=== PATIENT | male | born 1995 | race Hispanic/Latino ===

== ENCOUNTER 2020-08-20 08:00 | Emergency (ER) | payer SELFPAY ==
[2020-08-20] MEDS ORDERED: Lorazepam 2 MG/ML VIAL ONE (08:18)
[2020-08-20] MEDS ORDERED: Aspirin Chewable 81 MG TAB ONE (08:19)
[2020-08-20] MEDS ORDERED: Acetaminophen 500 MG TAB ONE (08:24)
[2020-08-20 08:38] LABS: #Basophils 0.1 thou/uL (0.0-0.2); #Eosinphils 0.1 thou/uL (0.0-0.7); #Lymphocytes 1.7 thou/uL (1.20-3.40); #Monocytes 0.4 thou/uL (0.11-0.59); #Neutrophils 4.4 thou/uL (1.40-6.50); %Basophils 1.4 % (0.0-1.0); %Eosinophils 1.5 % (0.0-10.0); %Lymphocytes 25.2 % (21.0-51.0); %Monocytes 6.2 % (0.0-10.0); %Neutrophils 65.8 % (42.0-75.0); Hemoglobin 15.6 g/dL (14.0-18.0); Mean Corpuscular HGB CONC 32.8 g/dL (32.0-36.0); Mean Corpuscular Hemoglobin 27.6 pg (27.0-31.0); Mean Corpuscular Volume 84.2 fL (78.0-98.0); Platelet Count 269 thou/uL (130-400); RBC Distribution Width 11.4 % (11.5-14.5); Red Blood Cell (RBC) Count 5.65 mill/uL (4.70-6.10); White Blood Cell (WBC) Count 6.8 thou/uL (4.8-10.8)
--- NOTE | 2020-08-20 08:38 | RAD ---
EXAM: CHEST ONE VIEW HISTORY: Left-sided chest pain and shortness of breath which started this morning. COMPARISON: None FINDINGS: The cardiac silhouette and pulmonary vasculature are within normal limits. The lungs are clear. The o sseous structures are intact. IMPRESSION: No acute cardiopulmonary process.
[2020-08-20 08:53] LABS: Acetaminophen Less than 6.0 mcg/mL (10.0-30.0); Alcohol Less than 10 mg/dL (Less than 10); Salicylate Less than 8.0 mg/dL (15.0-30.0)
[2020-08-20 08:59] LABS: ALT (SGPT) 14 U/L (8-55); AST (SGOT) 20 U/L (5-34); Albumin 5.2 g/dL (3.5-5.0); Alkaline Phosphatase 103 U/L (40-110); Anion Gap 21 mmol/L (10-20); BUN (Urea Nitrogen) 15 mg/dL (8.9-20.6); Bilirubin, Total 0.8 mg/dL (0.2-1.2); Calc. Creatinine Clearance 0 mL/min (70-130); Calcium 10.4 mg/dL (7.8-10.44); Carbon Dioxide 19 mmol/L (22-29); Chloride 103 mmol/L (98-107); Estimated GFR-MDRD 65; Globulin 3.4 g/dL (2.4-3.5); Glucose 137 mg/dL (70-105); Potassium 4.1 mmol/L (3.5-5.1); Protein, Total 8.6 g/dL (6.0-8.3); Sodium 139 mmol/L (136-145)
--- NOTE | 2020-08-20 09:00 | CT ---
Exam: CT angiogram of the chest HISTORY: Chest pain. COMPARISON: None TECHNIQUE: CT angiogram of the chest is performed in the axial plane. Three-dimensional reformatted i mages are submitted for interpretation FINDINGS: Mediastinum: No mass, lymphadenopathy or hematoma. HEART: Normal size. No significant pericardial fluid. Aorta: No aneurysm or dissection Upper solid abdominal viscera: No abnormality enhancement. Trachea and central bronchi: Patent Pleural spaces: No effusion Lung parenchyma: No masses or consolidation. Pneumothorax: None Osseous structures: No lytic or blastic lesions Pulmonary arteries: Adequate contrast opacification pulmonary arterial system to the level of segment al arteries. No filling defect to suggest pulmonary embolism IMPRESSION: 1. No evidence of pulmonary artery embolism to the level of the segmental arteries.
[2020-08-20] MEDS ORDERED: Lidocaine Viscous Sol 2% 15 ml UD Cup ONE (09:44)
[2020-08-20] MEDS ORDERED: Mag-Al 1200 mg/1200 mg/30 ML UDCUP ONE (09:44)
[2020-08-20] MEDS ORDERED: Famotidine/PF 20 mg/2ml Vial ONE (09:44)
[2020-08-20 10:09] LABS: Bilirubin Negative (Negative); Blood, Urine Negative (Negative); Clarity Clear (Clear); Glucose, Urine (Dipstick) Normal (Negative); Ketone, Urine 20 mg/dL (Negative); Leukocyte Negative Leu/uL (Negative); Nitrite Negative (Negative); Protein, Urine (Dipstick) Negative (Neg-Trace); Specific Gravity, Urine 1.039 (1.002-1.036); Urobilinogen Normal mg/dL (Less than 2)
[2020-08-20 10:30] LABS: Amphetamine Not Detected (NotDetected); Barbiturates Screen Not Detected (NotDetected); Benzodiazepine Screen Not Detected (NotDetected); Cocaine Metabolite Screen Not Detected (NotDetected); Medtox Control Line Valid? VALID (VALID); Medtox Reader # READER 4; Methadone Not Detected (NotDetected); Methamphetamine Not Detected (NotDetected); Opiate Screen Not Detected (NotDetected); Oxycodone Screen Not Detected (NotDetected); Phencyclidine (PCP) Not Detected (NotDetected); THC/Cannabinoid Screen Detected (NotDetected); Tricyclic Screen Not Detected (NotDetected)
[2020-08-20 11:25] LABS: Anion Gap 12 mmol/L (10-20); BUN (Urea Nitrogen) 12 mg/dL (8.9-20.6); Calc. Creatinine Clearance 0 mL/min (70-130); Calcium 8.4 mg/dL (7.8-10.44); Carbon Dioxide 22 mmol/L (22-29); Chloride 108 mmol/L (98-107); Estimated GFR-MDRD Greater than 90; Glucose 95 mg/dL (70-105); Potassium 3.8 mmol/L (3.5-5.1); Sodium 138 mmol/L (136-145)
[2020-08-20] MEDS ORDERED: Iopamidol-370 76% 500 ML 1 ML ONE (15:16)
== END 2020-08-20 12:41 | disposition home or self-care (01) ==
LOC: ERS 08:00
DX: R07.9 Chest pain, unspecified (principal); K29.70 Gastritis, unspecified, without bleeding; F41.9 Anxiety disorder, unspecified
CPT/HCPCS: 36415; 71045; 71275; 80053; 80306; 80307; 81003; 82550; 83605; 84484; 85025; 93005; 94760; 96374; 96375; J2060; Q9967; S0028

== ENCOUNTER 2020-09-06 06:51 | Emergency (ER) | payer SELFPAY ==
[2020-09-06] MEDS ORDERED: Ketorolac Tromethamine 30 MG/ML VIAL ONE (07:10)
[2020-09-06 07:31] LABS: #Basophils 0.1 thou/uL (0.0-0.2); #Eosinphils 0.1 thou/uL (0.0-0.7); #Lymphocytes 1.8 thou/uL (1.20-3.40); #Monocytes 0.8 thou/uL (0.11-0.59); #Neutrophils 6.3 thou/uL (1.40-6.50); %Basophils 0.9 % (0.0-1.0); %Eosinophils 1.4 % (0.0-10.0); %Lymphocytes 19.9 % (21.0-51.0); %Monocytes 8.8 % (0.0-10.0); Hemoglobin 15.2 g/dL (14.0-18.0); Mean Corpuscular HGB CONC 33.8 g/dL (32.0-36.0); Mean Corpuscular Hemoglobin 28.5 pg (27.0-31.0); Mean Corpuscular Volume 84.4 fL (78.0-98.0); Mean Platelet Volume 7.8 fL (7.4-10.4); Platelet Count 238 thou/uL (130-400); RBC Distribution Width 11.4 % (11.5-14.5); Red Blood Cell (RBC) Count 5.34 mill/uL (4.70-6.10); White Blood Cell (WBC) Count 9.2 thou/uL (4.8-10.8)
--- NOTE | 2020-09-06 07:44 | RAD ---
EXAM: Chest 2 views: HISTORY: Left chest and abdominal pain COMPARISON: None. FINDINGS: There is a normal-sized cardiomediastinal silhouette. There is no evidence of consolidation, mass, or pleural effusion. No acute osseous abnormality. IMPRESSION: No evidence of acute cardiopulmonary disease
[2020-09-06 07:57] LABS: ALT (SGPT) 19 U/L (8-55); AST (SGOT) 21 U/L (5-34); Albumin 4.9 g/dL (3.5-5.0); Alkaline Phosphatase 85 U/L (40-110); Anion Gap 17 mmol/L (10-20); BUN (Urea Nitrogen) 16 mg/dL (8.9-20.6); Bilirubin, Total 0.6 mg/dL (0.2-1.2); Calc. Creatinine Clearance 0 mL/min (70-130); Calcium 9.6 mg/dL (7.8-10.44); Carbon Dioxide 22 mmol/L (22-29); Chloride 103 mmol/L (98-107); Estimated GFR-MDRD Greater than 90; Globulin 3.3 g/dL (2.4-3.5); Glucose 105 mg/dL (70-105); Lipase 70 U/L (8-78); Potassium 3.5 mmol/L (3.5-5.1); Protein, Total 8.2 g/dL (6.0-8.3); Sodium 138 mmol/L (136-145)
[2020-09-06] MEDS ORDERED: Mag-Al 1200 mg/1200 mg/30 ML UDCUP ONE (08:49)
[2020-09-06] MEDS ORDERED: Lidocaine Viscous Sol 2% 15 ml UD Cup ONE (08:49)
== END 2020-09-06 09:00 | disposition home or self-care (01) ==
LOC: ERS 06:51
DX: R07.89 Other chest pain (principal)
CPT/HCPCS: 36415; 71046; 80053; 83690; 84484; 85025; 85379; 93005; 96374; J1885

== ENCOUNTER 2020-11-10 09:01 | Emergency (ER) | payer SELFPAY ==
[2020-11-10 09:29] LABS: #Eosinphils 0.2 thou/uL (0.0-0.7); #Lymphocytes 0.9 thou/uL (1.20-3.40); #Monocytes 0.4 thou/uL (0.11-0.59); #Neutrophils 4.8 thou/uL (1.40-6.50); %Basophils 0.7 % (0.0-1.0); %Eosinophils 2.8 % (0.0-10.0); %Lymphocytes 13.6 % (21.0-51.0); %Monocytes 6.7 % (0.0-10.0); %Neutrophils 76.2 % (42.0-75.0); Hemoglobin 14.8 g/dL (14.0-18.0); Mean Corpuscular HGB CONC 32.5 g/dL (32.0-36.0); Mean Corpuscular Hemoglobin 28.5 pg (27.0-31.0); Mean Corpuscular Volume 87.5 fL (78.0-98.0); Mean Platelet Volume 8.1 fL (7.4-10.4); Platelet Count 198 thou/uL (130-400); RBC Distribution Width 11.3 % (11.5-14.5); Red Blood Cell (RBC) Count 5.19 mill/uL (4.70-6.10); White Blood Cell (WBC) Count 6.3 thou/uL (4.8-10.8)
[2020-11-10 09:47] LABS: ALT (SGPT) 15 U/L (8-55); AST (SGOT) 20 U/L (5-34); Albumin 4.5 g/dL (3.5-5.0); Alkaline Phosphatase 94 U/L (40-110); Anion Gap 9 mmol/L (10-20); BUN (Urea Nitrogen) 16 mg/dL (8.9-20.6); Bilirubin, Total 0.3 mg/dL (0.2-1.2); Calc. Creatinine Clearance 0 mL/min (70-130); Carbon Dioxide 28 mmol/L (22-29); Chloride 106 mmol/L (98-107); Glucose 107 mg/dL (70-105); Lipase 92 U/L (8-78); Potassium 4.4 mmol/L (3.5-5.1); Protein, Total 7.5 g/dL (6.0-8.3); Sodium 139 mmol/L (136-145)
[2020-11-10] MEDS ORDERED: Milk Of Magnesia 30 ML UDCUP ONE (11:51)
[2020-11-10] MEDS ORDERED: Lidocaine Viscous Sol 2% 15 ml UD Cup ONE (11:51)
--- NOTE | 2020-11-10 13:26 | ULT ---
RIGHT UPPER QUADRANT ULTRASOUND: Date: 11/10/2020 COMPARISON: None. HISTORY: Right upper quadrant pain. TECHNIQUE: Multiplanar Mcgill scale sonographic imaging of the right upper quadrant provided. FINDINGS: The imaged pancreas is unremarkable. The tail is obscured by bowel gas. No focal liver lesion or intr ahepatic biliary dilatation is noted. No gallbladder wall thickening or pericholecystic fluid. No gallstones noted. The common bile duct measures 2-3 mm, within normal limits. The right kidney measures 9.5 cm in craniocaudal dimension and demonstrates no stone, hydronephrosis, or mass. The ground source heat pump technician reports a negative Gutierrez's sign. IMPRESSION: Unremarkable right upper quadrant ultrasound. POS: [facility]
== END 2020-11-10 14:09 | disposition home or self-care (01) ==
LOC: ERS 09:01
DX: R10.13 Epigastric pain (principal); R10.811 Right upper quadrant abdominal tenderness; R11.2 Nausea with vomiting, unspecified
CPT/HCPCS: 36415; 76705; 80053; 83690; 85025; 93005; 96372; J0500

== ENCOUNTER 2021-03-17 16:38 | Emergency (ER) | payer SELFPAY ==
[2021-03-17 17:01] LABS: #Lymphocytes 1.1 thou/uL (1.20-3.40); #Monocytes 0.8 thou/uL (0.11-0.59); #Neutrophils 6.9 thou/uL (1.40-6.50); %Basophils 0.4 % (0.0-1.0); %Eosinophils 0.1 % (0.0-10.0); %Lymphocytes 12.2 % (21.0-51.0); %Monocytes 9.4 % (0.0-10.0); %Neutrophils 77.9 % (42.0-75.0); Hemoglobin 15.2 g/dL (14.0-18.0); Mean Corpuscular HGB CONC 33.7 g/dL (32.0-36.0); Mean Corpuscular Hemoglobin 29.8 pg (27.0-31.0); Mean Corpuscular Volume 88.5 fL (78.0-98.0); Mean Platelet Volume 7.7 fL (7.4-10.4); Platelet Count 198 thou/uL (130-400); RBC Distribution Width 11.7 % (11.5-14.5); White Blood Cell (WBC) Count 8.9 thou/uL (4.8-10.8)
[2021-03-17 17:48] LABS: ALT (SGPT) 49 U/L (8-55); AST (SGOT) 33 U/L (5-34); Albumin 4.6 g/dL (3.5-5.0); Alkaline Phosphatase 110 U/L (40-110); Anion Gap 13 mmol/L (10-20); BUN (Urea Nitrogen) 6 mg/dL (8.9-20.6); Bilirubin, Total 0.6 mg/dL (0.2-1.2); Calc. Creatinine Clearance 0 mL/min (70-130); Calcium 9.6 mg/dL (7.8-10.44); Carbon Dioxide 20 mmol/L (22-29); Chloride 107 mmol/L (98-107); Globulin 3.6 g/dL (2.4-3.5); Glucose 93 mg/dL (70-105); Potassium 3.3 mmol/L (3.5-5.1); Protein, Total 8.2 g/dL (6.0-8.3); Sodium 137 mmol/L (136-145)
[2021-03-17] MEDS ORDERED: Ketorolac Tromethamine 30 MG/ML VIAL ONE (18:00)
[2021-03-17] MEDS ORDERED: Benzonatate 100 MG CAP ONE (18:00)
== END 2021-03-17 19:07 | disposition home or self-care (01) ==
LOC: ERS 16:38
DX: R07.89 Other chest pain (principal); R05 Cough
CPT/HCPCS: 36415; 71045; 80053; 84484; 85025; 85379; 93005; 94760; 96372; J1885

== ENCOUNTER 2021-07-10 06:29 | Inpatient (IN) | payer SELFPAY ==
[2021-07-10] MEDS ORDERED: Ketorolac Tromethamine 30 MG/ML VIAL ONE (07:01)
[2021-07-10] MEDS ORDERED: Cefepime 2 GM VIAL ONE (07:01)
[2021-07-10 07:12] LABS: #Basophils 0.1 thou/uL (0.0-0.2); #Eosinphils 0.2 thou/uL (0.0-0.7); #Monocytes 0.6 thou/uL (0.11-0.59); #Neutrophils 13.7 thou/uL (1.40-6.50); %Basophils 0.4 % (0.0-1.0); %Eosinophils 1.2 % (0.0-10.0); %Lymphocytes 6.2 % (21.0-51.0); %Monocytes 3.6 % (0.0-10.0); %Neutrophils 88.7 % (42.0-75.0); Hemoglobin 15.7 g/dL (14.0-18.0); Mean Corpuscular HGB CONC 33.4 g/dL (32.0-36.0); Mean Platelet Volume 7.8 fL (7.4-10.4); Platelet Count 232 thou/uL (130-400); RBC Distribution Width 11.6 % (11.5-14.5); White Blood Cell (WBC) Count 15.5 thou/uL (4.8-10.8)
[2021-07-10] MEDS ORDERED: Morphine 4 MG/ML VIAL ONE (07:12)
[2021-07-10 07:33] LABS: ALT (SGPT) 22 U/L (8-55); AST (SGOT) 22 U/L (5-34); Albumin 4.7 g/dL (3.5-5.0); Alkaline Phosphatase 109 U/L (40-110); Anion Gap 13 mmol/L (10-20); BUN (Urea Nitrogen) 16 mg/dL (8.9-20.6); Bilirubin, Total 0.5 mg/dL (0.2-1.2); Calc. Creatinine Clearance 0 mL/min (70-130); Calcium 9.5 mg/dL (7.8-10.44); Carbon Dioxide 23 mmol/L (22-29); Chloride 107 mmol/L (98-107); Globulin 3.2 g/dL (2.4-3.5); Glucose 102 mg/dL (70-105); Protein, Total 7.9 g/dL (6.0-8.3); Sodium 139 mmol/L (136-145)
[2021-07-10] MEDS ORDERED: Vancomycin 1 GM/200 ML BAG ONE (08:31)
[2021-07-10] MEDS ORDERED: Acetaminophen 325 MG TAB PO PRN (08:33)
[2021-07-10] MEDS ORDERED: HYDROcodone/Acetaminophen 5/325 mg Tablet PO PRN (08:33)
[2021-07-10] MEDS ORDERED: Iopamidol-370 76% 500 ML 1 ML ONE (08:54)
[2021-07-10] MEDS ORDERED: Vancomycin 1 GM in Premix Bag 1 BAG IVPB SCH (09:00)
[2021-07-10 09:44] LABS: INR-International Normal Ratio 0.9; Prothrombin Time 12.4 sec (12.0-14.7)
[2021-07-10 09:45] LABS: PTT 33.5 sec (22.9-36.1)
[2021-07-10 10:30] VITALS: BMI 26.6
[2021-07-10 10:56] LABS: SARS-CoV-2 NAA Rapid Test Not Detected (NotDetected)
[2021-07-10] MEDS ORDERED: FLU VACC QS2021-22(6MOS UP)/PF 60 MCG/0.5 ML SYRINGE IM ONE (11:00)
[2021-07-10] MEDS: Ondansetron PF 4 MG/2 ML Vial IVP PRN ×2 (11:32→14:20)
[2021-07-10] MEDS: Morphine 4 MG/ML VIAL SLOW IVP PRN ×2 (11:34→19:47)
[2021-07-10] MEDS: Famotidine 20 MG TAB PO SCH ×2 (11:59→19:47)
[2021-07-10] MEDS: Enoxaparin Sodium 40 MG/0.4 ML SYRINGE SC SCH (11:59)
[2021-07-10] MEDS ORDERED: Vancomycin 1.5 GRAM/300 ML BAG 1.5 GM in Premix Bag 1 BAG IVPB SCH (14:00)
[2021-07-10] MEDS: HYDROcodone/Acetaminophen 5/325 mg Tablet PO PRN (16:55)
[2021-07-10] MEDS ORDERED: Cefepime 1 GM in Sodium Chloride 0.9% 100 ML IVPB SCH (20:00)
[2021-07-10] MEDS: ceFAZolin Sodium/D5W 2 GM in Premix Bag 1 BAG IVPB SCH (21:55)
[2021-07-10 23:26] LABS: Amphetamine Not Detected (NotDetected); Barbiturates Screen Not Detected (NotDetected); Benzodiazepine Screen Not Detected (NotDetected); Cocaine Metabolite Screen Not Detected (NotDetected); Methadone Not Detected (NotDetected); Methamphetamine Not Detected (NotDetected); Opiate Screen Detected (NotDetected); Oxycodone Screen Not Detected (NotDetected); Phencyclidine (PCP) Not Detected (NotDetected); THC/Cannabinoid Screen Detected (NotDetected); Tricyclic Screen Not Detected (NotDetected)
[2021-07-11] MEDS: HYDROcodone/Acetaminophen 5/325 mg Tablet PO PRN ×3 (04:00→21:49)
[2021-07-11] MEDS: ceFAZolin Sodium/D5W 2 GM in Premix Bag 1 BAG IVPB SCH ×3 (05:26→21:51)
[2021-07-11 07:29] LABS: #Lymphocytes 0.6 thou/uL (1.20-3.40); #Monocytes 0.7 thou/uL (0.11-0.59); %Basophils 0.3 % (0.0-1.0); %Eosinophils 0.1 % (0.0-10.0); %Lymphocytes 4.9 % (21.0-51.0); %Monocytes 5.9 % (0.0-10.0); %Neutrophils 88.8 % (42.0-75.0); Hemoglobin 13.6 g/dL (14.0-18.0); Mean Corpuscular HGB CONC 34.1 g/dL (32.0-36.0); Mean Corpuscular Hemoglobin 29.7 pg (27.0-31.0); Mean Corpuscular Volume 87.3 fL (78.0-98.0); Mean Platelet Volume 8.1 fL (7.4-10.4); Platelet Count 176 thou/uL (130-400); RBC Distribution Width 11.5 % (11.5-14.5); Red Blood Cell (RBC) Count 4.59 mill/uL (4.70-6.10); White Blood Cell (WBC) Count 12.4 thou/uL (4.8-10.8)
[2021-07-11] MEDS: Famotidine 20 MG TAB PO SCH ×2 (07:42→19:23)
[2021-07-11] MEDS: Enoxaparin Sodium 40 MG/0.4 ML SYRINGE SC SCH (07:42)
[2021-07-11 07:50] LABS: Anion Gap 12 mmol/L (10-20); BUN (Urea Nitrogen) 11 mg/dL (8.9-20.6); Calc. Creatinine Clearance 112 mL/min (70-130); Calcium 8.8 mg/dL (7.8-10.44); Carbon Dioxide 27 mmol/L (22-29); Chloride 102 mmol/L (98-107); Glucose 109 mg/dL (70-105); Potassium 3.5 mmol/L (3.5-5.1); Sodium 137 mmol/L (136-145)
[2021-07-11] MEDS: Morphine 4 MG/ML VIAL SLOW IVP PRN ×2 (09:29→18:40)
[2021-07-11] MEDS ORDERED: Magnevist 469MG/ML 20 ML VIAL ONE (10:25)
[2021-07-12] MEDS: Morphine 4 MG/ML VIAL SLOW IVP PRN ×3 (02:09→17:28)
[2021-07-12] MEDS: ceFAZolin Sodium/D5W 2 GM in Premix Bag 1 BAG IVPB SCH ×3 (05:45→22:21)
[2021-07-12] MEDS: Famotidine 20 MG TAB PO SCH ×2 (07:37→20:17)
[2021-07-12] MEDS: Enoxaparin Sodium 40 MG/0.4 ML SYRINGE SC SCH (07:38)
[2021-07-12 08:12] LABS: #Eosinphils 0.2 thou/uL (0.0-0.7); #Lymphocytes 1.1 thou/uL (1.20-3.40); #Neutrophils 8.3 thou/uL (1.40-6.50); %Basophils 0.2 % (0.0-1.0); %Eosinophils 1.5 % (0.0-10.0); %Lymphocytes 10.1 % (21.0-51.0); %Monocytes 9.7 % (0.0-10.0); %Neutrophils 78.5 % (42.0-75.0); Hemoglobin 14.4 g/dL (14.0-18.0); Mean Corpuscular HGB CONC 35.1 g/dL (32.0-36.0); Mean Corpuscular Hemoglobin 30.8 pg (27.0-31.0); Mean Corpuscular Volume 87.7 fL (78.0-98.0); Mean Platelet Volume 7.7 fL (7.4-10.4); Platelet Count 208 thou/uL (130-400); RBC Distribution Width 11.5 % (11.5-14.5); Red Blood Cell (RBC) Count 4.68 mill/uL (4.70-6.10); White Blood Cell (WBC) Count 10.6 thou/uL (4.8-10.8)
[2021-07-12 08:34] LABS: Anion Gap 10 mmol/L (10-20); BUN (Urea Nitrogen) 12 mg/dL (8.9-20.6); Calc. Creatinine Clearance 122 mL/min (70-130); Calcium 9.2 mg/dL (7.8-10.44); Carbon Dioxide 31 mmol/L (22-29); Chloride 102 mmol/L (98-107); Glucose 96 mg/dL (70-105); Potassium 3.6 mmol/L (3.5-5.1); Sodium 139 mmol/L (136-145)
[2021-07-12] MEDS: HYDROcodone/Acetaminophen 5/325 mg Tablet PO SCH ×3 (09:48→20:17)
[2021-07-13] MEDS: HYDROcodone/Acetaminophen 5/325 mg Tablet PO SCH ×4 (02:49→21:36)
[2021-07-13] MEDS: Morphine 4 MG/ML VIAL SLOW IVP PRN ×3 (04:53→17:36)
[2021-07-13] MEDS: ceFAZolin Sodium/D5W 2 GM in Premix Bag 1 BAG IVPB SCH ×3 (05:04→21:37)
[2021-07-13 07:20] LABS: Anion Gap 11 mmol/L (10-20); BUN (Urea Nitrogen) 11 mg/dL (8.9-20.6); CRP (Inflammatory) 11.24 mg/dL (= or < 0.5); Calc. Creatinine Clearance 121 mL/min (70-130); Calcium 8.9 mg/dL (7.8-10.44); Carbon Dioxide 29 mmol/L (22-29); Chloride 101 mmol/L (98-107); Glucose 96 mg/dL (70-105); Potassium 3.6 mmol/L (3.5-5.1); Sodium 137 mmol/L (136-145)
[2021-07-13 07:27] LABS: #Eosinphils 0.1 thou/uL (0.0-0.7); #Lymphocytes 1.2 thou/uL (1.20-3.40); #Monocytes 0.9 thou/uL (0.11-0.59); #Neutrophils 5.6 thou/uL (1.40-6.50); %Basophils 0.1 % (0.0-1.0); %Eosinophils 1.8 % (0.0-10.0); %Monocytes 11.8 % (0.0-10.0); %Neutrophils 71.3 % (42.0-75.0); Hemoglobin 13.7 g/dL (14.0-18.0); Mean Corpuscular HGB CONC 33.9 g/dL (32.0-36.0); Mean Corpuscular Hemoglobin 29.6 pg (27.0-31.0); Mean Corpuscular Volume 87.5 fL (78.0-98.0); Mean Platelet Volume 7.8 fL (7.4-10.4); Platelet Count 223 thou/uL (130-400); RBC Distribution Width 11.4 % (11.5-14.5); Red Blood Cell (RBC) Count 4.64 mill/uL (4.70-6.10); White Blood Cell (WBC) Count 7.8 thou/uL (4.8-10.8)
[2021-07-13] MEDS: Famotidine 20 MG TAB PO SCH ×2 (08:38→21:36)
[2021-07-13] MEDS: Enoxaparin Sodium 40 MG/0.4 ML SYRINGE SC SCH (08:38)
[2021-07-13] MEDS: Ondansetron ODT 4 MG TAB PO PRN (08:47)
[2021-07-14] MEDS: Morphine 4 MG/ML VIAL SLOW IVP PRN ×3 (00:08→17:49)
[2021-07-14] MEDS: HYDROcodone/Acetaminophen 5/325 mg Tablet PO SCH ×4 (05:03→21:57)
[2021-07-14] MEDS: ceFAZolin Sodium/D5W 2 GM in Premix Bag 1 BAG IVPB SCH ×3 (05:03→21:58)
[2021-07-14] MEDS: Enoxaparin Sodium 40 MG/0.4 ML SYRINGE SC SCH (08:19)
[2021-07-14] MEDS: Famotidine 20 MG TAB PO SCH ×2 (08:19→21:58)
[2021-07-14] MEDS ORDERED: Furosemide 40 MG/4 ML VIAL SLOW IVP SCH (09:15)
[2021-07-15] MEDS: Morphine 4 MG/ML VIAL SLOW IVP PRN ×3 (00:59→18:48)
[2021-07-15] MEDS: HYDROcodone/Acetaminophen 5/325 mg Tablet PO SCH ×4 (03:54→21:07)
[2021-07-15 06:45] LABS: #Eosinphils 0.3 thou/uL (0.0-0.7); #Lymphocytes 1.7 thou/uL (1.20-3.40); #Monocytes 0.8 thou/uL (0.11-0.59); #Neutrophils 5.6 thou/uL (1.40-6.50); %Basophils 0.3 % (0.0-1.0); %Eosinophils 3.6 % (0.0-10.0); %Lymphocytes 20.2 % (21.0-51.0); %Monocytes 9.7 % (0.0-10.0); %Neutrophils 66.2 % (42.0-75.0); Hemoglobin 13.9 g/dL (14.0-18.0); Mean Corpuscular HGB CONC 33.7 g/dL (32.0-36.0); Mean Corpuscular Hemoglobin 29.4 pg (27.0-31.0); Mean Corpuscular Volume 87.3 fL (78.0-98.0); Mean Platelet Volume 7.3 fL (7.4-10.4); Platelet Count 274 thou/uL (130-400); RBC Distribution Width 11.3 % (11.5-14.5); Red Blood Cell (RBC) Count 4.72 mill/uL (4.70-6.10); White Blood Cell (WBC) Count 8.5 thou/uL (4.8-10.8)
[2021-07-15] MEDS: ceFAZolin Sodium/D5W 2 GM in Premix Bag 1 BAG IVPB SCH ×3 (06:55→21:08)
[2021-07-15] MEDS: Famotidine 20 MG TAB PO SCH ×2 (08:34→21:07)
[2021-07-15] MEDS: Enoxaparin Sodium 40 MG/0.4 ML SYRINGE SC SCH (08:35)
[2021-07-15] MEDS ORDERED: Furosemide 20 MG/2 ML VIAL SLOW IVP SCH (13:45)
[2021-07-15] MEDS: Ondansetron ODT 4 MG TAB PO PRN (18:49)
[2021-07-16] MEDS: Morphine 4 MG/ML VIAL SLOW IVP PRN ×3 (00:23→18:09)
[2021-07-16] MEDS: HYDROcodone/Acetaminophen 5/325 mg Tablet PO SCH ×4 (05:29→20:55)
[2021-07-16] MEDS: ceFAZolin Sodium/D5W 2 GM in Premix Bag 1 BAG IVPB SCH ×3 (06:36→20:54)
[2021-07-16 07:32] LABS: #Eosinphils 0.3 thou/uL (0.0-0.7); #Lymphocytes 1.7 thou/uL (1.20-3.40); #Monocytes 0.6 thou/uL (0.11-0.59); #Neutrophils 5.6 thou/uL (1.40-6.50); %Basophils 0.6 % (0.0-1.0); %Eosinophils 3.4 % (0.0-10.0); %Lymphocytes 20.5 % (21.0-51.0); %Monocytes 7.1 % (0.0-10.0); %Neutrophils 68.5 % (42.0-75.0); Mean Corpuscular HGB CONC 32.4 g/dL (32.0-36.0); Mean Corpuscular Hemoglobin 28.5 pg (27.0-31.0); Mean Corpuscular Volume 88.2 fL (78.0-98.0); Platelet Count 297 thou/uL (130-400); RBC Distribution Width 11.4 % (11.5-14.5); Red Blood Cell (RBC) Count 5.26 mill/uL (4.70-6.10); White Blood Cell (WBC) Count 8.2 thou/uL (4.8-10.8)
[2021-07-16 07:53] LABS: Anion Gap 12 mmol/L (10-20); BUN (Urea Nitrogen) 15 mg/dL (8.9-20.6); CRP (Inflammatory) 4.62 mg/dL (= or < 0.5); Calc. Creatinine Clearance 113 mL/min (70-130); Calcium 9.9 mg/dL (7.8-10.44); Carbon Dioxide 30 mmol/L (22-29); Chloride 100 mmol/L (98-107); Glucose 100 mg/dL (70-105); Sodium 138 mmol/L (136-145)
[2021-07-16] MEDS ORDERED: Zolpidem Tartrate 5 MG TAB PO PRN (08:01)
[2021-07-16] MEDS ORDERED: Sodium Chloride 0.65% Nasal 44 ML BOT EA NARE PRN (08:01)
[2021-07-16] MEDS ORDERED: Hydrocerin (Eucerin) Cream 120 gm Jar TOP PRN (08:01)
[2021-07-16] MEDS ORDERED: Benzonatate 100 MG CAP PO PRN (08:01)
[2021-07-16] MEDS ORDERED: GUAIFENESIN SF SOLN 200 MG/10 ML UDCUP PO PRN (08:01)
[2021-07-16] MEDS ORDERED: Senokot S 8.6-50 MG TAB PO PRN (08:01)
[2021-07-16] MEDS ORDERED: Cepastat Lozenges 1 LOZ PO PRN (08:01)
[2021-07-16] MEDS ORDERED: Bisacodyl 5 MG TAB PO PRN (08:01)
[2021-07-16] MEDS ORDERED: hydrALAZINE 20 MG/ML VIAL SLOW IVP PRN (08:01)
[2021-07-16] MEDS ORDERED: Artificial Tear Sol 15 ML BOT EA EYE PRN (08:01)
[2021-07-16] MEDS ORDERED: Calcium Carbonate 500 MG ChewTAB PO PRN (08:01)
[2021-07-16] MEDS ORDERED: Loperamide HCl 2 MG CAP PO PRN (08:01)
[2021-07-16] MEDS ORDERED: Loratadine 10 MG TAB PO PRN (08:01)
[2021-07-16] MEDS: Famotidine 20 MG TAB PO SCH ×2 (08:39→20:55)
[2021-07-16] MEDS: Enoxaparin Sodium 40 MG/0.4 ML SYRINGE SC SCH (08:39)
[2021-07-17] MEDS: HYDROcodone/Acetaminophen 5/325 mg Tablet PO SCH ×4 (05:32→21:14)
[2021-07-17] MEDS: ceFAZolin Sodium/D5W 2 GM in Premix Bag 1 BAG IVPB SCH ×2 (05:33→14:39)
[2021-07-17] MEDS: Famotidine 20 MG TAB PO SCH ×2 (08:03→21:14)
[2021-07-17] MEDS: Enoxaparin Sodium 40 MG/0.4 ML SYRINGE SC SCH (08:03)
[2021-07-17] MEDS: Morphine 4 MG/ML VIAL SLOW IVP PRN (12:26)
[2021-07-17 16:57] LABS: SARS-CoV-2 PCR by NAA Not Detected (NotDetected)
[2021-07-17] MEDS: CEFAZOLIN 2 GM in Premix Bag 1 BAG IVPB SCH (21:39)
[2021-07-18] MEDS: HYDROcodone/Acetaminophen 5/325 mg Tablet PO SCH ×2 (03:42→08:33)
[2021-07-18] MEDS: CEFAZOLIN 2 GM in Premix Bag 1 BAG IVPB SCH (05:59)
[2021-07-18 07:15] VITALS: BP 132/73; TEMP 97.9
[2021-07-18] MEDS: Enoxaparin Sodium 40 MG/0.4 ML SYRINGE SC SCH (08:33)
[2021-07-18] MEDS: Famotidine 20 MG TAB PO SCH (08:34)
== END 2021-07-18 09:56 | disposition home or self-care (01) | DRG 872 ==
LOC: ERS 06:29 → T4-A 08:40 → OBSVTOIN 07-11 15:57
PROVIDERS: ADMIT Internal Medicine; ATTEND Internal Medicine
DX: A41.9 Sepsis, unspecified organism (principal); L03.115 Cellulitis of right lower limb; Z20.822 Contact with and (suspected) exposure to COVID-19; F12.10 Cannabis abuse, uncomplicated; Z90.49 Acquired absence of other specified parts of digestive tract
CPT/HCPCS: 36415; 80048; 80053; 80306; 82550; 83605; 85025; 85610; 85652; 85730; 86140; 87040; 96365; 96366; 96367; 96372; 96375; 96376; A9579; G0378; J0690; J0692; J1650; J1885; J1940; J2270; J2405; J3370; Q0162; Q9967; U0002; U0003; U0005

== ENCOUNTER 2021-09-05 20:19 | Inpatient (IN) | payer SELFPAY ==
[~2021-09-05 20:19] MED LIST: Iopamidol-370 76% 500 ML 1 ML ONE
[2021-09-05] MEDS ORDERED: methylPREDNISolone Sod Succ/PF 125 MG/2 ML VIAL ONE (20:46)
[2021-09-05] MEDS ORDERED: Magnesium 2 GM/50 ML BAG (IN WATER) ONE (20:46)
[2021-09-05] MEDS ORDERED: cefTRIAXone\\ROCEPHIN 1 GM VIAL ONE (20:46)
[2021-09-05 20:52] LABS: #Basophils 0.1 thou/uL (0.0-0.2); #Eosinphils 0.1 thou/uL (0.0-0.7); #Lymphocytes 1.5 thou/uL (1.20-3.40); #Monocytes 0.9 thou/uL (0.11-0.59); #Neutrophils 8.5 thou/uL (1.40-6.50); %Basophils 0.5 % (0.0-1.0); %Eosinophils 0.5 % (0.0-10.0); %Lymphocytes 13.3 % (21.0-51.0); %Monocytes 8.6 % (0.0-10.0); %Neutrophils 77.1 % (42.0-75.0); Hemoglobin 15.6 g/dL (14.0-18.0); Mean Corpuscular HGB CONC 33.9 g/dL (32.0-36.0); Mean Corpuscular Hemoglobin 28.8 pg (27.0-31.0); Mean Corpuscular Volume 85.1 fL (78.0-98.0); Mean Platelet Volume 7.4 fL (7.4-10.4); Platelet Count 224 thou/uL (130-400); RBC Distribution Width 11.7 % (11.5-14.5)
[2021-09-05 21:12] LABS: ALT (SGPT) 27 U/L (8-55); AST (SGOT) 28 U/L (5-34); Albumin 4.9 g/dL (3.5-5.0); Alkaline Phosphatase 102 U/L (40-110); Anion Gap 18 mmol/L (10-20); BUN (Urea Nitrogen) 15 mg/dL (8.9-20.6); Bilirubin, Total 0.6 mg/dL (0.2-1.2); Calc. Creatinine Clearance 0 mL/min (70-130); Calcium 9.6 mg/dL (7.8-10.44); Carbon Dioxide 19 mmol/L (22-29); Chloride 105 mmol/L (98-107); Globulin 3.6 g/dL (2.4-3.5); Glucose 95 mg/dL (70-105); Magnesium 1.9 mg/dL (1.6-2.6); Potassium 3.6 mmol/L (3.5-5.1); Protein, Total 8.5 g/dL (6.0-8.3); Sodium 138 mmol/L (136-145)
[2021-09-05] MEDS ORDERED: Lorazepam 2 MG/ML VIAL ONE (22:38)
[2021-09-05] MEDS ORDERED: Azithromycin 500 MG VIAL ONE ×2 (22:50→23:39)
[2021-09-05 23:35] LABS: SARS-CoV-2 NAA Rapid Test Not Detected (NotDetected)
[2021-09-06 01:47] VITALS: BMI 29.2
[2021-09-06] MEDS ORDERED: Ondansetron PF 4 MG/2 ML Vial IVP PRN (06:13)
[2021-09-06] MEDS ORDERED: Acetaminophen 325 MG TAB PO PRN (06:13)
[2021-09-06 06:58] LABS: #Lymphocytes 0.5 thou/uL (1.20-3.40); #Monocytes 0.1 thou/uL (0.11-0.59); %Basophils 0.1 % (0.0-1.0); %Eosinophils 0.2 % (0.0-10.0); %Lymphocytes 7.4 % (21.0-51.0); %Monocytes 1.4 % (0.0-10.0); %Neutrophils 90.9 % (42.0-75.0); Hemoglobin 14.6 g/dL (14.0-18.0); Mean Corpuscular HGB CONC 33.7 g/dL (32.0-36.0); Mean Corpuscular Hemoglobin 29.4 pg (27.0-31.0); Mean Corpuscular Volume 87.2 fL (78.0-98.0); Mean Platelet Volume 7.5 fL (7.4-10.4); Platelet Count 208 thou/uL (130-400); RBC Distribution Width 11.8 % (11.5-14.5); Red Blood Cell (RBC) Count 4.95 mill/uL (4.70-6.10); White Blood Cell (WBC) Count 6.6 thou/uL (4.8-10.8)
[2021-09-06 07:24] LABS: Anion Gap 17 mmol/L (10-20); BUN (Urea Nitrogen) 14 mg/dL (8.9-20.6); Calc. Creatinine Clearance 157 mL/min (70-130); Calcium 9.4 mg/dL (7.8-10.44); Carbon Dioxide 18 mmol/L (22-29); Chloride 108 mmol/L (98-107); Glucose 123 mg/dL (70-105); Sodium 139 mmol/L (136-145)
[2021-09-06] MEDS ORDERED: cefTRIAXone\\ROCEPHIN 1 GM in Sodium Chloride 0.9% 100 ML IVPB SCH ×2 (08:00→21:00)
[2021-09-06] MEDS: Enoxaparin Sodium 40 MG/0.4 ML SYRINGE SC SCH (09:01)
[2021-09-06] MEDS ORDERED: guaiFENesin ER 600 MG TAB PO SCH (11:30)
[2021-09-06] MEDS: methylPREDNISolone Sod Succ 40 MG VIAL IVP SCH ×2 (12:14→21:26)
[2021-09-06] MEDS: Cepastat Lozenges 1 LOZ PO PRN ×2 (12:57→19:01)
[2021-09-06] MEDS: Guaifenesin DM 100-10/5 ML UDCUP PO PRN ×2 (12:57→19:01)
[2021-09-06] MEDS: Benzonatate 100 MG CAP PO SCH ×2 (15:46→21:25)
[2021-09-06] MEDS: guaiFENesin ER 600 MG TAB PO SCH (21:25)
[2021-09-07] MEDS ORDERED: Azithromycin 500 MG in Sodium Chloride 0.9% 250 ML 250 ML IVPB SCH
[2021-09-07] MEDS: Guaifenesin DM 100-10/5 ML UDCUP PO PRN ×2 (00:02→08:23)
[2021-09-07] MEDS: Azithromycin 250 MG TAB PO SCH ×2 (00:02→23:21)
[2021-09-07 03:48] LABS: #Lymphocytes 0.6 thou/uL (1.20-3.40); #Monocytes 0.4 thou/uL (0.11-0.59); #Neutrophils 5.1 thou/uL (1.40-6.50); %Basophils 0.1 % (0.0-1.0); %Eosinophils 0.1 % (0.0-10.0); %Lymphocytes 9.5 % (21.0-51.0); %Neutrophils 83.3 % (42.0-75.0); Hemoglobin 14.4 g/dL (14.0-18.0); Mean Corpuscular HGB CONC 33.3 g/dL (32.0-36.0); Mean Corpuscular Volume 87.1 fL (78.0-98.0); Mean Platelet Volume 7.4 fL (7.4-10.4); Platelet Count 209 thou/uL (130-400); RBC Distribution Width 11.8 % (11.5-14.5); Red Blood Cell (RBC) Count 4.98 mill/uL (4.70-6.10); White Blood Cell (WBC) Count 6.2 thou/uL (4.8-10.8)
[2021-09-07 03:58] LABS: Anion Gap 11 mmol/L (10-20); BUN (Urea Nitrogen) 19 mg/dL (8.9-20.6); Calc. Creatinine Clearance 151 mL/min (70-130); Calcium 9.7 mg/dL (7.8-10.44); Carbon Dioxide 24 mmol/L (22-29); Chloride 107 mmol/L (98-107); Glucose 133 mg/dL (70-105); Potassium 4.2 mmol/L (3.5-5.1); Sodium 138 mmol/L (136-145)
[2021-09-07] MEDS: methylPREDNISolone Sod Succ 40 MG VIAL IVP SCH (08:21)
[2021-09-07] MEDS: guaiFENesin ER 600 MG TAB PO SCH ×2 (08:23→20:27)
[2021-09-07] MEDS: Benzonatate 100 MG CAP PO SCH ×3 (08:23→20:27)
[2021-09-07] MEDS: Cepastat Lozenges 1 LOZ PO PRN (08:24)
[2021-09-07] MEDS: Enoxaparin Sodium 40 MG/0.4 ML SYRINGE SC SCH (08:28)
[2021-09-07] MEDS: guaiFENesin/Codeine 200 mg/20 mg 10 ml Cup PO PRN (20:26)
[2021-09-08] MEDS: guaiFENesin/Codeine 200 mg/20 mg 10 ml Cup PO PRN (02:10)
[2021-09-08 07:26] LABS: #Lymphocytes 2.3 thou/uL (1.20-3.40); #Monocytes 0.6 thou/uL (0.11-0.59); #Neutrophils 4.8 thou/uL (1.40-6.50); %Basophils 0.2 % (0.0-1.0); %Eosinophils 0.3 % (0.0-10.0); %Lymphocytes 29.8 % (21.0-51.0); %Monocytes 7.8 % (0.0-10.0); Hemoglobin 14.7 g/dL (14.0-18.0); Mean Corpuscular HGB CONC 33.7 g/dL (32.0-36.0); Mean Corpuscular Hemoglobin 29.3 pg (27.0-31.0); Mean Platelet Volume 7.9 fL (7.4-10.4); Platelet Count 215 thou/uL (130-400); RBC Distribution Width 11.9 % (11.5-14.5); Red Blood Cell (RBC) Count 5.02 mill/uL (4.70-6.10); White Blood Cell (WBC) Count 7.7 thou/uL (4.8-10.8)
[2021-09-08 07:37] LABS: Anion Gap 13 mmol/L (10-20); BUN (Urea Nitrogen) 21 mg/dL (8.9-20.6); Calc. Creatinine Clearance 141 mL/min (70-130); Calcium 9.6 mg/dL (7.8-10.44); Carbon Dioxide 24 mmol/L (22-29); Chloride 105 mmol/L (98-107); Glucose 94 mg/dL (70-105); Potassium 3.6 mmol/L (3.5-5.1); Sodium 138 mmol/L (136-145)
[2021-09-08] MEDS ORDERED: predniSONE 20 MG TAB PO SCH (08:00)
[2021-09-08] MEDS: guaiFENesin ER 600 MG TAB PO SCH (09:00)
[2021-09-08] MEDS: Enoxaparin Sodium 40 MG/0.4 ML SYRINGE SC SCH (09:00)
[2021-09-08] MEDS: Benzonatate 100 MG CAP PO SCH ×2 (09:00→15:11)
[2021-09-08 12:34] VITALS: BP 117/71; TEMP 98.1
[2021-09-09] MEDS ORDERED: FLU VACC QS2021-22(6MOS UP)/PF 60 MCG/0.5 ML SYRINGE IM ONE (09:00)
[2021-09-09] MEDS ORDERED: Prevnar 13-Val Conj/PF 0.5 ML SYRINGE IM ONE (09:00)
== END 2021-09-08 16:13 | disposition home or self-care (01) | DRG 193 ==
LOC: ERS 20:19 → IMCU/EMU 22:56 → T4-B 09-07 17:10
PROVIDERS: ADMIT Internal Medicine; ATTEND Internal Medicine
PROC: 5A09357 Assistance with Respiratory Ventilation, Less than 24 Consecutive Hours, Continuous Positive Airway Pressure (ICD-10-PCS; principal; 2021-09-05)
DX: J12.3 Human metapneumovirus pneumonia (principal); J96.00 Acute respiratory failure, unspecified whether with hypoxia or hypercapnia; J45.901 Unspecified asthma with (acute) exacerbation; E87.2 Acidosis; J06.9 Acute upper respiratory infection, unspecified; Z20.822 Contact with and (suspected) exposure to COVID-19; F12.10 Cannabis abuse, uncomplicated
CPT/HCPCS: 0240U; 36415; 36416; 71045; 71275; 80048; 80053; 82550; 83605; 83735; 83880; 84443; 84484; 85025; 87040; 87070; 87205; 87633; 90471; 90670; 90686; 93005; 94640; 94660; 96365; 96367; 96375; G0008; G0009; J0456; J0696; J1650; J2060; J2920; J2930; J3475; J7512; J7620; Q9967

== ENCOUNTER 2022-09-22 01:05 | Emergency (ER) | payer SELFPAY ==
[2022-09-22] MEDS ORDERED: Benzonatate 100 MG CAP ONE (01:24)
[2022-09-22 01:33] LABS: #Lymphocytes 1.2 thou/uL (1.20-3.40); #Monocytes 0.7 thou/uL (0.11-0.59); #Neutrophils 10.6 thou/uL (1.40-6.50); %Basophils 0.1 % (0.0-1.0); %Eosinophils 0.2 % (0.0-10.0); %Lymphocytes 9.4 % (21.0-51.0); %Monocytes 5.9 % (0.0-10.0); %Neutrophils 84.4 % (42.0-75.0); Hemoglobin 15.5 g/dL (14.0-18.0); Mean Corpuscular HGB CONC 33.8 g/dL (32.0-36.0); Mean Corpuscular Hemoglobin 29.1 pg (27.0-31.0); Mean Corpuscular Volume 86.3 fl (78.0-98.0); Mean Platelet Volume 7.9 fL (7.4-10.4); Platelet Count 211 10x3/uL (130-400); RBC Distribution Width 11.3 % (11.5-14.5); Red Blood Cell (RBC) Count 5.33 mill/uL (4.70-6.10); White Blood Cell (WBC) Count 12.5 10x3/uL (4.8-10.8)
[2022-09-22] MEDS ORDERED: Ondansetron PF 4 MG/2 ML Vial ONE (01:34)
[2022-09-22 01:59] LABS: ALT (SGPT) 13 U/L (8-55); AST (SGOT) 21 U/L (5-34); Albumin 4.7 g/dL (3.5-5.0); Alkaline Phosphatase 105 U/L (40-110); Anion Gap 16 mmol/L (10-20); BUN (Urea Nitrogen) 12 mg/dL (8.9-20.6); Bilirubin, Total 0.5 mg/dL (0.2-1.2); Calc. Creatinine Clearance 0 mL/min (70-130); Calcium 9.3 mg/dL (7.8-10.44); Carbon Dioxide 19 mmol/L (22-29); Chloride 106 mmol/L (98-107); Estimated GFR 102; Globulin 3.5 g/dL (2.4-3.5); Glucose 107 mg/dL (70-105); Potassium 3.3 mmol/L (3.5-5.1); Protein, Total 8.2 g/dL (6.0-8.3); Sodium 138 mmol/L (136-145)
[2022-09-22] MEDS ORDERED: Ipratropium Bromide 2.5 ml Neb ONE (02:07)
[2022-09-22] MEDS ORDERED: Albuterol Sulfate 2.5 mg/0.5 ml Neb ONE (02:07)
[2022-09-22] MEDS ORDERED: LORazepam 2 MG/ML SYR.(CARPUJECT) ONE (03:05)
[2022-09-22] MEDS ORDERED: methylPREDNISolone Sod Succ/PF 125 MG/2 ML VIAL ONE (03:18)
[2022-09-22 03:49] LABS: Bilirubin Negative (Negative); Blood, Urine Negative (Negative); Clarity Clear (Clear); Glucose, Urine (Dipstick) Normal (Negative); Ketone, Urine 10 mg/dL (Negative); Leukocyte Negative Leu/uL (Negative); Nitrite Negative (Negative); Protein, Urine (Dipstick) 20 mg/dL (Neg-Trace); Urobilinogen Normal mg/dL (Less than 2)
[2022-09-22 04:00] LABS: SARS-CoV-2 NAA Rapid Test Not Detected (NotDetected)
== END 2022-09-22 06:30 | disposition home or self-care (01) ==
LOC: ERS 01:05
DX: J20.8 Acute bronchitis due to other specified organisms (principal); J45.909 Unspecified asthma, uncomplicated; Z20.822 Contact with and (suspected) exposure to COVID-19
CPT/HCPCS: 36415; 71045; 80053; 81003; 83605; 84484; 85025; 87040; 93005; 96374; 96375; J2060; J2405; J2930; J7611